=== PATIENT | female | born 1970 | race Caucasian/White ===

== ENCOUNTER 2016-06-15 13:47 | Emergency (ER) | payer BC, OTHER ==
[2016-06-15] MEDS ORDERED: FAMOTIDINE 10 MG/ML VIAL IV ONE (15:29)
[2016-06-15 15:53] LABS: Hemoglobin 14.6 gm/dL (12.5-16.0); Mean Cell Volume 97.8 fl (78-100); Mean Corpuscular Hemoglobin 31.7 pg (27-31); Mean Corpuscular Hgb Conc 32.4 g/dl (32-36); Mean Platelet Volume 10.7 fl (6.0-9.5); Neutrophil # 5.1 K/mm3 (1.3-6.0); Neutrophil % 62.9 % (42-75.0); Platelet Count 261 K/mm3 (150-450); Red Cell Distribution Width 12.1 % (11.5-14.0)
[2016-06-15 16:32] LABS: Troponin I Less than 0.017 ng/ml (0.00-0.10)
[2016-06-15] MEDS ORDERED: DIATRIZOATE MEGLU/DIATRIZO SOD 30 ML BTL ONE (16:32)
[2016-06-15] MEDS ORDERED: DIATRIZOATE MEGLU/DIATRIZO SOD 30 ML BTL PO ONE (16:35)
[2016-06-15 16:50] LABS: INR 1.02 INR (0.90-1.10); Prothrombin Time (Patient) 10.6 Seconds (9.4-11.4)
[2016-06-15 16:52] LABS: ALT 65 U/L (19-67); AST 40 U/L (0-48); Albumin * 3.7 gm/dl (3.4-5.0); Alkaline Phosphatase * 133 U/L (50-170); Amylase * 52 U/L (25-115); Anion Gap 10.6 mmol/L (6.8-13.8); BUN/Creatinine Ratio 13.1 (9.0-21.6); Bilirubin, Total 0.3 mg/dL (0.0-1.1); Blood Urea Nitrogen 11 mg/dL (3-23); Ca. Corrected For Albumin 9.7 mg/dL (8.4-10.2); Calcium * 9.8 mg/dL (7.9-10.9); Carbon Dioxide 31.5 mmol/L (24-32.6); Chloride 103 mmol/L (97-106); Glucose * 87 mg/dL (70-110); Lipase 184 U/L (73-393); Potassium 4.1 mmol/L (3.4-4.6); Sodium 141 mmol/L (132-142); Total Protein 7.9 gm/dL (6.2-8.2)
--- NOTE | 2016-06-15 18:51 | OR ---
Anesthesia Procedure Note - Anesthesia Procedure Note Date of Service: 06/15/16 Narrative: Vital Signs - Last Taken Temp 36.2 C L 06/15/16 14:03 Pulse 78 06/15/16 14:03 Resp 16 06/15/16 14:03 BP 125/80 06/15/16 14:03 Pulse Ox 98 06/15/16 14:03 06/15/16 18:46 ANESTHESIA PROCEDURE NOTE Date of Procedure: 06/15/2016 Time of procedure: 1830. Performed by: AMARA Morales CRNA, MSN Preprocedure diagnosis: Abdominal pain, lack of IV access. Post procedure diagnosis: Same. Procedure: Venipuncture for IV access]. Indications: No viable venous access after multiple attempts. IV access requirement for diagnosis and treatment procedures. Findings: See below. Details of the procedure: The patient has historically difficult venous access, frequently requiring ultrasound guidance. On assessing the patient initially she had both of her arms wrapped and warm blankets for some time. There was a small visible vein on the back of the left hand which was localized with 0.1 mL of 1% lidocaine solution, and a #22-gauge IV was initiated however on threading the catheter is no longer any blood return. The anterior wrist was then prepped and localized with 1% lidocaine solution 0.1 mL and a #20-gauge appeared to enter without issue however I can the catheter did not thread off of the needle. At this point the dorsal hand on the right side did display a potential IV that may handle a 20-gauge IV catheter, a tourniquet was applied and the hand was prepped with Betadine and alcohol, 0.1 mL of 1% lidocaine solution was injected at the intended IV site. A #20-gauge IV was then inserted with ease, flushed and secured in place. EBL: Minimal. Fluids: N/A. Specimen: N/A. Post procedure condition: The patient tolerated the procedure well. No complications were noted. Thank you for this consultation. Ashish Ahumada CRNA, ARNP, MSN
--- NOTE | 2016-06-15 18:56 | ERNOTE ---
Abdominal HPI - Narrative Date of Service: 06/15/16 - General Chief Complaint: Abdominal Pain Time Seen by Provider: 06/15/16 15:24 Source: patient Exam Limitations: no limitations - Immun/Allergies/Home Medications Immunizatons: IMMUNIZATION HX Immunizations Up to Date Yes History of Influenza Vaccine Yes Hx Pneumococcal Vaccination No Allergies/Adverse Reactions: Allergies Sulfa (Sulfonamide Antibiotics) [Sulfa(Sulfonamide Antibiotics)] Allergy (Mild, Verified 06/15/16 14:10) Hives diazepam [From Valium] Adverse Reaction (Intermediate, Verified 06/15/16 14:10) HEARTBURN, CHEST PAIN ciprofloxacin [From Cipro] Adverse Reaction (Mild, Verified 06/15/16 14:10) LETHARGY ciprofloxacin HCl [From Cipro] Adverse Reaction (Mild, Verified 06/15/16 14:10) LETHARGY Penicillins Adverse Reaction (Mild, Verified 06/15/16 14:10) RASH Home Medications: HOME MEDICATIONS Omeprazole [Prilosec] 40 mg PO BID 11/03/14 [Last Taken Unknown] oxyCODONE HCL/ACETAMINOPHEN [Percocet 5 MG/325 MG] 1 tab PO BID PRN 11/03/14 [ Last Taken Unknown] Paroxetine HCl [Paxil] 40 mg PO DAILY 09/30/15 [Last Taken Unknown] Ascorbic Acid [Vitamin C] 500 mg PO DAILY 10/02/15 [Last Taken Unknown] Cyanocobalamin [Vitamin B-12] 1,000 mcg PO DAILY 10/02/15 [Last Taken Unknown] Dicyclomine HCl [Bentyl] 10 mg PO TID 10/02/15 [Last Taken Unknown] LORazepam [Ativan] 1 - 2 mg PO Q6H PRN 10/02/15 [Last Taken Unknown] Nabumetone 750 mg PO BID 10/02/15 [Last Taken Unknown] Polyethylene Glycol 3350 [Miralax] 17 gm PO DAILY PRN 10/02/15 [Last Taken Unknown] Cyclobenzaprine HCl [Flexeril] 10 mg PO BID PRN 12/10/15 [Last Taken Unknown] Multivit-Min/FA/Lycopene/Lut [Centrum Silver Tablet] 1 each PO DAILY 12/12/15 [ Last Taken Unknown] oxyCODONE HCL/ACETAMINOPHEN [Percocet 5 MG/325 MG] 1 - 2 tab PO Q4H PRN #60 tab 12/12/15 [Last Taken Unknown] Omeprazole 40 mg PO DAILY #30 capsule. 06/15/16 [Last Taken Unknown] Ondansetron [Zofran Odt] 4 mg PO Q6H PRN #10 tab 06/15/16 [Last Taken Unknown] Ranitidine HCl [Zantac] 150 mg PO BID #60 tab 06/15/16 [Last Taken Unknown] - History of Present Illness Narrative: Patient comes due to an upper abdominal pain. Timing: constant Quality: severe, sharpness Activities at Onset: rest Modifying Factors - (Improves): Present: other - nothing Modifying Factors - (Worsens): Present: other - nothing Associated Symptoms: Present: back pain, nausea, vomiting. Absent: headache, chest pain, neck pain, diaphoresis, diarrhea-gross blood, diarrhea-mucous, fever /chills, heartburn, loss of appetite, shortness of breath, swelling/mass in abdomen, syncope, weakness Prior Abdominal Problems: Present: similar symptoms - Patient reported Hx of Gastritis, but this is different to previous events. Absent: recent trauma Prior Treatment: Absent: recently seen Review of Systems - Review of Systems Constitutional: Present: no symptoms reported. Absent: fever EYE: Present: no symptoms reported ENT: Present: no symptoms reported Respiratory: Present: no symptoms reported Cardiology: Absent: chest pain, palpitations, syncope, edema, claudication Gastrointestinal/Abdominal: Present: nausea, abdominal pain - upper abdominal area. Absent: diarrhea Genitourinary: Present: no symptoms reported Musculoskeletal: Present: no symptoms reported Skin: Present: no symptoms reported Neurological: Present: no symptoms reported Endocrine: Present: no symptoms reported Hematologic/Lymphatic: Present: no symptoms reported - Patient's Past Medical History Patient History - Medical: Anxiety, Depression, GERD, Kidney stone, Other Patient History - Cancer: No Hx of Cancer Patient History - Surgical Procedures: Cholecystectomy, EGD, Hysterectomy, Tubal Ligation, T & A, Other - Family History Father Family History - Medical: , No pertinent hx Family History - Cardiac/Respiratory: No pertinent hx Mother Family History - Medical: No pertinent hx Family History - Cardiac/Respiratory: CVA/Stroke Sister Family History - Medical: Fibromyalgia, Other Family History - Cardiac/Respiratory: Hypertension - Social History Living Situations: home Smoking Status: Never smoker Have you smoked in the past 12 months: No Do you dip or chew tobacco: No Alcohol Use: none Drug Use: none Physical Exam - Physical Exam General Appearance: Present: wd/wn, alert, no apparent distress Eye Exam: Normal inspection: bilateral, PERRL: bilateral, EOMI: bilateral Ears, Nose, Throat: Present: normal ENT inspection, hearing grossly normal, normal pharynx Neck: Present: normal inspection, nontender Respiratory: Present: no respiratory distress, normal breath sounds, no accessory muscle use, chest nontender, lungs clear Cardiovascular/Chest: Present: regular rate, rhythm, no murmur, normal peripheral pulses Peripheral Pulses: N=norm/S=strong/W=weak/B=bound/A=absent: Carotid (R): Normal , Carotid (L): Normal, Radial (R): Normal, Radial (L): Normal, Dorsalis-pedis (R ): Normal, Dorsalis-pedis (L): Normal Gastrointestinal/Abdominal: Present: normal bowel sounds, nondistended, soft, no organomegaly, tenderness - Patient with pain on the upper abdominal area more on the epigastric region Back Exam: Present: normal inspection, normal range of motion, no CVA tenderness , no vertebral tenderness Extremity Exam: Present: normal inspection, non-tender, no edema, normal range of motion Neurological Exam: Present: alert, oriented, normal mood/affect, no motor/ sensory deficits Skin Exam: Present: normal color, warm/dry. Absent: skin rash Lymphatic Exam: Present: no adenopathy ED Progress - Date and Time Seen: Date and Time: 06/15/16 18:53 I was informed by RN that due to lack of IV access a delay on patient's care occurred. 06/15/16 20:17 Patient at the moment with a non surgical abdomen. Patient is pending CT of the Abd-Pelvis. Patient will be given Tx and if CT is negative will be discharge with F/U with GI specialist. - Vital Signs Vital Signs: Vital Signs 06/15/16 14:03 Temperature 36.2 C L Pulse Rate 78 Respiratory 16 Rate Blood Pressure 125/80 O2 Sat by Pulse 98 Oximetry - EKG EKG: NSR, nonspecific ST T wave changes EKG read: Interp. by me EKG Comments: HR: 57, S. Adriano, No ST Elevation. Patient with none specific ST changes on must leads and no MI depression - X-Ray X-Ray #1 X-Ray: chest X-ray Comments: No acute process reported by Radiologist on Report - CT/Ultrasound CT/Ultrasound Narrative: No gross pathology was reported on CT of the Abd-Pelvis by Radiologist. Patient has no sign of pancreatitis, appendicitis, or any inflammatory process. No evidence of obstruction reported. - Progress/Reassessment Chief Complaint: Abdominal Pain Progress:: Improved - Transfer of Care Expected Disposition: Discharge Departure - Departure Clinical Impression: Abdominal pain Qualifiers: Abdominal location: upper abdomen, unspecified Qualified Code(s): R10.10 - Upper abdominal pain, unspecified Gastritis Qualifiers: Gastritis type: unspecified gastritis Chronicity: acute Gastritis bleeding: without bleeding Qualified Code(s): K29.00 - Acute gastritis without bleeding Disposition: Home self-care Condition: Stable Instructions: Gastritis, Adult, [id number], Heartburn, Abdominal Pain, Adult , [id number] Referrals: Phil Shoemaker MD [Primary Care Provider] - Prescriptions: Omeprazole 40 mg PO DAILY #30 capsule. Ondansetron [Zofran Odt] 4 mg PO Q6H PRN #10 tab PRN Reason: Nausea And Vomiting Ranitidine HCl [Zantac] 150 mg PO BID #60 tab
[2016-06-15 21:21] VITALS: BP 109/49
== END 2016-06-15 20:41 | disposition home or self-care (01) ==
LOC: ER 13:47
DX: K29.00 Acute gastritis without bleeding (principal); Z90.710 Acquired absence of both cervix and uterus; Z90.49 Acquired absence of other specified parts of digestive tract

== ENCOUNTER 2017-04-23 13:10 | Emergency (ER) | payer BC ==
--- NOTE | 2017-04-23 13:29 | ERNOTE ---
Abdominal HPI - General Chief Complaint: Abdominal Pain Time Seen by Provider: 04/23/17 13:15 Source: patient, family Exam Limitations: no limitations - Immun/Allergies/Home Medications Immunizatons: IMMUNIZATION HX Immunizations Up to Date Yes History of Influenza Vaccine Yes Hx Pneumococcal Vaccination No Allergies/Adverse Reactions: Allergies Sulfa (Sulfonamide Antibiotics) [Sulfa(Sulfonamide Antibiotics)] Allergy (Mild, Verified 06/15/16 14:10) Hives diazepam [From Valium] Adverse Reaction (Intermediate, Verified 06/15/16 14:10) HEARTBURN, CHEST PAIN ciprofloxacin [From Cipro] Adverse Reaction (Mild, Verified 06/15/16 14:10) LETHARGY ciprofloxacin HCl [From Cipro] Adverse Reaction (Mild, Verified 06/15/16 14:10) LETHARGY Penicillins Adverse Reaction (Mild, Verified 06/15/16 14:10) RASH Home Medications: HOME MEDICATIONS Polyethylene Glycol 3350 [Miralax] 17 gm PO DAILY PRN 10/02/15 [Last Taken Unknown] oxyCODONE HCL/ACETAMINOPHEN [Percocet 5 MG/325 MG] 1 - 2 tab PO Q4H PRN #60 tab 12/12/15 [Last Taken Unknown] Ranitidine HCl [Zantac] 150 mg PO BID #60 tab 06/15/16 [Last Taken Unknown] - History of Present Illness Narrative: Patient has not felt good for a few days. Two days ago after thanksgiving dinner she started to vomit for multiple hours, last yesterday morning at 02:00 , diarrhea last a few hours ago. She had a temp up to 101, abdominal pain mainly epigastric, worse after trying to eat a few bites of ice cream. She has kept sprite down down, has not tried water. 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 Date (Duration): 04/21/17 Timing: constant Quality: mild, fullness Modifying Factors - (Improves): Present: coughing, movement Associated Symptoms: Present: diarrhea-mucous, fever/chills, nausea, vomiting. Absent: headache Review of Systems - Review of Systems Constitutional: Present: fever, malaise. Absent: recent illness ENT: Absent: nose congestion, sore throat Respiratory: Absent: shortness of breath, cough Cardiology: Absent: chest pain Gastrointestinal/Abdominal: Present: See HPI Genitourinary: Present: no symptoms reported, decreased urinary output Musculoskeletal: Absent: back pain, neck pain Skin: Absent: rash Neurological: Absent: weakness, numbness - Patient's Past Medical History Patient History - Medical: Anxiety, Depression, GERD, Kidney stone, Other Patient History - Cardiac/Respiratory: No pertinent hx Patient History - Cancer: No Hx of Cancer Patient History - Surgical Procedures: Cholecystectomy, EGD, Hysterectomy, Tubal Ligation, T & A, Other, Orthopedic Patient History - Other: None LMP (females 10-50): hysterectomy - Family History Father Family History - Medical: , No pertinent hx Family History - Cardiac/Respiratory: No pertinent hx Mother Family History - Medical: No pertinent hx Family History - Cardiac/Respiratory: CVA/Stroke Sister Family History - Medical: Fibromyalgia, Other Family History - Cardiac/Respiratory: Hypertension - Social History Living Situations: spouse Abuse History: No History of abuse Psych History: Hx of Anxiety, Hx of Depression Smoking Status: Never smoker Have you smoked in the past 12 months: No Do you dip or chew tobacco: No Alcohol Use: rarely Drug Use: none - Immunizations Immunizations Up to Date: Yes Hx Pneumococcal Vaccination: No History of Influenza Vaccine: Yes Physical Exam - Physical Exam General Appearance: Present: wd/wn, alert, no apparent distress, obese Ears, Nose, Throat: Present: normal ENT inspection, normal pharynx Respiratory: Present: no respiratory distress, normal breath sounds, no accessory muscle use, lungs clear Cardiovascular/Chest: Present: regular rate, rhythm, no murmur Gastrointestinal/Abdominal: Present: normal bowel sounds, nondistended, soft, tenderness - mild epigastric Extremity Exam: Present: no edema Neurological Exam: Present: alert, oriented, normal mood/affect Skin Exam: Present: normal color, warm/dry ED Progress - Results and Orders Patient's Lab Results:: I have reviewed the patient's lab results. - Vital Signs Patient's Vital Signs:: I have reviewed the patient's vital signs. Vital Signs: Vital Signs 04/23/17 13:17 Temperature 36.9 C Pulse Rate 99 Respiratory 82 H Rate Blood Pressure 127/92 O2 Sat by Pulse 99 Oximetry - X-Ray X-Ray #1 X-Ray: abdomen - no acute findings Interpretation: Interp. by me - Progress/Reassessment Chief Complaint: Abdominal Pain Progress Note-Subjective: 04/23/17 14:49 discussed test results, patient tolerated water, no vomiting, still mild epigastric discomfort, offered GI cocktail, patient declined Departure Clinical Impression: Gastroenteritis and colitis, viral - Departure Disposition: Home self-care Condition: Good Instructions: Viral Gastroenteritis, Adult, [id number], Food Choices to Help Relieve Diarrhea, Adult Referrals: Phil Shoemaker MD [Primary Care Provider] -
[2017-04-23] MEDS ORDERED: ONDANSETRON 4 MG TAB.RAPDIS PO ONE (13:34)
[2017-04-23] MEDS ORDERED: ONDANSETRON 4 MG TAB.RAPDIS ONE (13:45)
[2017-04-23 13:46] LABS: Hematocrit 40.5 % (37.0-47.0); Hemoglobin 13.9 gm/dL (12.5-16.0); Mean Cell Volume 94.4 fl (78-100); Mean Corpuscular Hemoglobin 32.4 pg (27-31); Mean Corpuscular Hgb Conc 34.3 g/dl (32-36); Mean Platelet Volume 10.1 fl (6.0-9.5); Neutrophil # 3.8 K/mm3 (1.3-6.0); Neutrophil % 68.3 % (42-75.0); Platelet Count 237 K/mm3 (150-450); Red Blood Count 4.29 M/mm3 (4.2-5.4); Red Cell Distribution Width 12.2 % (11.5-14.0); White Blood Count 5.5 K/mm3 (4.0-10.5)
[2017-04-23 14:04] LABS: Urine Appearance Clear; Urine Bacteria None Seen; Urine Bilirubin Negative (NEGATIVE); Urine Blood Negative /ul (NEGATIVE); Urine Color Yellow; Urine Ketone Negative (NEGATIVE); Urine Nitrite Negative (NEGATIVE); Urine Protein Negative (NEGATIVE); Urine RBC None Seen /hpf (0-5); Urine Specific Gravity 1.025 SP.GR. (1.005-1.010); Urine Urobilinogen Normal (NORMAL); Urine WBC None Seen /hpf (0-5)
[2017-04-23 14:16] LABS: Albumin * 3.5 gm/dl (3.4-5.0); Anion Gap 12.2 mmol/L (6.8-13.8); BUN/Creatinine Ratio 14.1 (9.0-21.6); Bilirubin, Total 0.5 mg/dL (0.0-1.1); Ca. Corrected For Albumin 9.2 mg/dL (8.4-10.2); Calcium * 9.1 mg/dL (7.9-10.9); Carbon Dioxide 28.2 mmol/L (24-32.6); Potassium 3.4 mmol/L (3.4-4.6); Total Protein 7.5 gm/dL (6.2-8.2)
[2017-04-23 15:02] VITALS: BP 130/84
== END 2017-04-23 14:55 | disposition home or self-care (01) ==
LOC: ER 13:10
DX: A08.4 Viral intestinal infection, unspecified (principal); Z87.442 Personal history of urinary calculi